=== PATIENT | male | born 1960 | race Caucasian/White ===

== ENCOUNTER → 2017-11-24 15:36 | Outpatient (REF) | payer MEDICAID, SELFPAY ==
[2017-11-24 19:48] LABS: Basophils % 0.4 % (0.1-2.0); Eosinophils # 0.1 K/mm3 (0.0-0.4); Eosinophils % 0.9 % (0.1-12.0); Hematocrit 46.7 % (42.0-52.0); Hemoglobin 14.9 g/dL (14.1-18.0); Mean Corpuscular HGB Conc 31.8 g/dL (31.8-35.4); Mean Corpuscular Hemoglobin 32.9 pg (27.0-31.2); Mean Corpuscular Volume 103.5 fl (80-94); Mean Platelet Volume 9.1 fl (7.4-10.4); Monocytes # 0.7 K/mm3 (0.1-1.0); Neutrophils # 7.7 K/mm3 (1.8-7.8); Neutrophils % 72.7 % (37.0-80.0); Platelet Count 340 K/mm3 (142-424); Red Blood Count 4.51 M/mm3 (4.60-6.20); Red Cell Distribution Width 14.4 % (11.5-17.5); White Blood Count 10.5 K/mm3 (4.8-10.8)
[2017-11-24 21:58] LABS: Alanine Aminotransferase 20 U/L (12-78); Albumin Level 3.3 gm/dL (3.4-5.0); Albumin/Globulin Ratio 0.7 (1.1-1.8); Alkaline Phosphatase 102 U/L (46-116); Anion Gap 15.2 mEq/L (5-15); Aspartate Amino Transferase 10 U/L (15-37); Bilirubin,Total 0.2 mg/dL (0.2-1.0); Blood Urea Nitrogen 12 mg/dL (7-18); Calcium 8.8 mg/dL (8.5-10.1); Carbon Dioxide 26 mmol/L (21.0-32.0); Chloride 105 mmol/L (98-107); Chol/HDL Ratio 4.1 (1-3.5); Cholesterol 203 mg/dL (140-200); Creatinine,Serum 0.75 mg/dL (0.70-1.30); Estimated Glomerular Filt Rate 108 ml/min (>60); Free T4 (Free Thyroxine) 1.02 ng/dl (0.76-1.46); GFR (African American) 131 ML/MIN (>60); Globulin 4.8 gm/dl (1.3-3.2); Glucose 84 mg/dL (74-106); HDL Cholesterol 49 mg/dL (27-67); LDL Cholesterol 134 mg/dL (0-130); Potassium 4.2 mmoL/L (3.5-5.1); Sodium 142 mmol/L (136-145); Thyroid Stimulating Hormone 1.81 uIU/ml (0.358-3.740); Total Protein,Serum 8.1 gm/dL (6.4-8.2); Triglycerides 100 mg/dL (30-200); VLDL Cholesterol 20 mg/dL (0-40)
== END ==
LOC: LAB 15:36
PROVIDERS: Visit Provider Emergency Medicine
DX: M25.50 Pain in unspecified joint (principal)
CPT/HCPCS: 80053; 80061; 82652; 84439; 84443; 85025

== ENCOUNTER → 2018-04-07 10:27 | Outpatient (CLI) | payer MEDICAID, SELFPAY | PROVIDERS: Visit Provider Urology | DX: Z12.5 Encounter for screening for malignant neoplasm of prostate (principal); R35.1 Nocturia | CPT/HCPCS: 36415; G0103 ==

== ENCOUNTER → 2020-09-25 10:29 | Outpatient (CLI) | payer MEDICARE, SELFPAY ==
--- NOTE | 2020-09-25 10:43 | XR_ITS ---
PROCEDURE: XR HAND LT MIN 3V CLINICAL INDICATION: RM, OSTEOARTHRITIS Pain COMPARISON: No exams were available for comparison FINDINGS: No fracture or dislocation. No lytic or blastic change. There is normal mineralization. There are mild osteoarthritic changes at the DIP of the 3rd digit and at the metacarpophalangeal junction of the 1st digit and at the radiocarpal joint. Other findings:None. IMPRESSION: Mild osteoarthritis. Dictated by: Jaison Aguilar MD 09/25/2020 16:49 Jaison Aguilar MD in [facility] 09/25/2020 16:49
--- NOTE | 2020-09-25 10:43 | XR_ITS ---
PROCEDURE: XR KNEE RT 3V CLINICAL INDICATION: RM,OSTEOARTHRITIS COMPARISON: No exams were available for comparison FINDINGS: Tricompartmental osteoarthritic changes are present. Bony sclerosis is present at the medial lateral compartment with subchondral lucency. Subchondral lucencies may be related to areas of osteo chondrosis. Lucency is present at the proximal tibia laterally and may be due to subchondral cyst measuring 10 mm. Calcific density is present at the medial aspect of the distal femur and may be related to an old avulsion injury of the medial collateral ligament. There is a small suprapatellar effusion. Other findings:None. IMPRESSION: Osteoarthritic changes with mixed sclerosis and lucency of the medial lateral compartment which could be related to osteoarthritis with osteochondrosis versus subchondral cystic changes. Suspect old avulsion of the medial collateral ligament/Lalito-Stieda Small knee joint effusion Dictated by: Jaisno Aguilar MD 09/25/2020 16:53 Jaison Aguilar MD in [facility] 09/25/2020 16:53
--- NOTE | 2020-09-25 10:43 | XR_ITS ---
PROCEDURE: XR KNEE LT 3V CLINICAL INDICATION: RHEMOATOID ARTHRITIS,OSTEOARTHRITIS Pain COMPARISON: No exams were available for comparison FINDINGS: No fracture or dislocation. No lytic or blastic change. There is normal mineralization. There is minimal spurring along the lateral tibial spine Other findings:None. IMPRESSION: Minimal spurring at the lateral tibial spine otherwise negative left knee. Dictated by: Jaison Aguilar MD 09/25/2020 16:54 Jaison Aguilar MD in [facility] 09/25/2020 16:54
--- NOTE | 2020-09-25 10:43 | XR_ITS ---
PROCEDURE: XR HAND RT MIN 3V CLINICAL INDICATION: RM, OSTEOARTHRITIS Pain COMPARISON: No exams were available for comparison FINDINGS: No fracture or dislocation. No lytic or blastic change. There is normal mineralization. There a small marginal erosive changes involving the proximal and radial aspect the middle phalanx of the 3rd finger. There is decrease in the joint space at this region. Osteoarthritic changes are present at the 1st metacarpal-carpal joint. There are osteoarthritic changes at the radiocarpal joint Other findings:None. IMPRESSION: Osteoarthritis as described above. Small bony erosion noted along the proximal and radial aspect of the middle phalanx of the 3rd finger. This could be seen due to erosive osteoarthritis. Cannot exclude other erosive arthritic changes. Dictated by: Jaison Aguilar MD 09/25/2020 16:48 Jaison Aguilar MD in [facility] 09/25/2020 16:48
== END ==
PROVIDERS: PCP Emergency Medicine; Visit Provider Internal Medicine Adolescent Medicine
DX: M06.9 Rheumatoid arthritis, unspecified (principal); M17.0 Bilateral primary osteoarthritis of knee
CPT/HCPCS: 73130; 73562

== ENCOUNTER → 2020-10-02 07:19 | Outpatient (CLI) | payer MEDICARE, SELFPAY ==
--- NOTE | 2020-10-02 07:33 | CT_ITS ---
PROCEDURE: CT LUNG SCREENING CLINICAL INDICATION: LUNG SCREENING Current smoker 45 pack year smoking history No prior COMPARISON: No exams were available for comparison TECHNIQUE: The exam was performed on a [employer] Light Speed [address] scanner using 2.90 mGy CTDI. A low dose helical CT CHEST was performed on a multi-detector scanner. All CT scans at the facility use one or more dose reduction, viz: automated exposure control, ma/kV adjustment per patient size (including targeted exams where dose is matched to indication, i.e. head), or iterative reconstruction technique. The LDCT was performed in a facility that meets the criteria for the screening program. Data regarding this exam was submitted to [employer] which is an approved registry. The order for this exam indicates that it came as a result of a lung cancer screening counseling shard decision-making visit that included all the elements required of such a visit including smoking cessation. The radiologist interpreting this exam meets the [facility] criteria for the LDCT lung cancer screening program. The exam is reported using the Lung-RADS classification scale and reported to the [employer] registry. NOTE: This study was performed for the specific purposes of lung cancer screening and is not an alternative to diagnostic chest CT. RADIATION DOSE: CTDI vol(CT dose Index-volume) = 2.90mG DLP (Dose Length Product) = 102.12 mGcm FINDINGS: COPD changes. There is a 17 x 10 mm subpleural opacity in the right upper lobe laterally. This is noncalcified. Noncalcified 4 mm nodules present in the right lower lobe image 36. Calcified nodule is present in the left lower lobe. OTHER FINDINGS: Coronary artery calcifications. Mildly prominent axillary and mediastinal lymph nodes. Cholelithiasis. Osteoarthritic changes at the manubrial/body of sternum joint. IMPRESSION: Lung-RADS Category 4A Suspicious 17 mm subpleural opacity right upper lobe Mild mediastinal and axillary adenopathy. Follow-up: Suggest PET-CT for further evaluation. Coronary artery calcification. Cholelithiasis Dictated by: Jaison Aguilar MD 10/13/2020 09:53 Jaison Aguilar MD in [place] 10/13/2020 09:53
== END ==
PROVIDERS: PCP Internal Medicine Adolescent Medicine; Visit Provider Internal Medicine Adolescent Medicine
DX: Z87.891 Personal history of nicotine dependence (principal); Z12.2 Encounter for screening for malignant neoplasm of respiratory organs
CPT/HCPCS: 71271

== ENCOUNTER → 2020-11-30 11:30 | Outpatient (CLI) | payer MEDICARE, SELFPAY ==
[2020-11-30 12:51] LABS: Coronavirus 19 IgG Antibody Negative (Negative); Coronavirus 19 IgM Antibody Negative (Negative)
== END ==
PROVIDERS: Visit Provider Internal Medicine Gastroenterology
DX: Z01.818 Encounter for other preprocedural examination (principal); Z20.822 Contact with and (suspected) exposure to COVID-19; Z12.11 Encounter for screening for malignant neoplasm of colon
CPT/HCPCS: 36415; 86328

== ENCOUNTER → 2020-12-02 09:19 | Day surgery (SDC) | payer MEDICARE, SELFPAY ==
[2020-11-28 14:49] VITALS: BMI 27.0
[2020-12-02 09:50] VITALS: BP 179/115; PULSE 90; RESP 18; TEMP 36.8; O2SAT 95
--- NOTE | 2020-12-02 11:38 | SUR.PREOP ---
Procedure cancelled/rescheduled per Dr Campbell. Pt ate regular diet on 12/01 and did not take prep.
== END ==
PROVIDERS: PCP Emergency Medicine; Visit Provider Internal Medicine Gastroenterology
PROC: 0DJD8ZZ Inspection of Lower Intestinal Tract, Via Natural or Artificial Opening Endoscopic (ICD-10-PCS; CPT 45378; principal; 2020-12-02 10:30)
DX: Z53.8 Procedure and treatment not carried out for other reasons (principal)